=== PATIENT | male | born 1960 | race Caucasian/White ===

== ENCOUNTER 2018-10-08 12:42 | Emergency (ER) | payer SELFPAY ==
[~2018-10-08] VITALS: Ht 177.8 cm; Wt 95.0 kg
[2018-10-08] MEDS ORDERED: LEVO125T8 PO (12:56)
[2018-10-08] MEDS ORDERED: CITA20TA28 PO (12:56)
--- NOTE | 2018-10-08 13:37 | NUR ---
spouse at bedside,awaiting for patient to be seen by ED doc.
[2018-10-08 13:45] LABS: BASOPHILS % (AUTO) 0.5 % (0-1); EOSINOPHILS # (AUTO) 0.2 X10'3 (0-0.9); EOSINOPHILS % (AUTO) 2.1 % (0-6); HEMATOCRIT 45.3 % (42.0-52.0); HEMOGLOBIN 15.8 g/dl (14.0-17.9); LYMPHOCYTES # (AUTO) 1.5 X10'3 (1.1-4.8); LYMPHOCYTES % (AUTO) 18.2 % (21-51); MEAN CORPUSCULAR HEMOGLOBIN 30.2 PG (27.0-31.0); MEAN CORPUSCULAR HGB CONC 34.8 g/dL (33.0-36.5); MEAN CORPUSCULAR VOLUME 86.7 FL (78-98); MEAN PLATELET VOLUME 7.9 FL (7.4-10.4); MONOCYTES # (AUTO) 0.7 X10'3 (0-0.9); MONOCYTES % (AUTO) 9.2 % (2-12); NEUTROPHILS # (AUTO) 5.7 X10'3 (1.8-7.7); PLATELET COUNT 203 X10'3 (140-440); RED BLOOD COUNT 5.22 X10'6 (4.70-6.10); RED CELL DISTRIBUTION WIDTH 13.6 % (11.5-14.5); WHITE BLOOD COUNT 8.2 X10'3 (4.5-11.0)
--- NOTE | 2018-10-08 13:48 | NUR ---
dr. crocker at bedside.
[2018-10-08 13:52] LABS: PARTIAL THROMBOPLASTIN TIME 31 SECONDS (22-32)
[2018-10-08 13:56] LABS: ALANINE AMINOTRANSFERASE 33 U/L (12-78); ALBUMIN 3.7 G/DL (3.4-5.0); ALBUMIN/GLOBULIN RATIO 0.9 (1.1-1.5); ALKALINE PHOSPHATASE 59 IU/L (46-116); ANION GAP 8 (8-16); ASPARTATE AMINO TRANSFERASE 21 U/L (10-37); BILIRUBIN,TOTAL 1.3 MG/DL (0.1-1.0); BLOOD UREA NITROGEN 14 MG/DL (7-18); BUN/CREATININE RATIO 10.6 (5.4-32.0); CALCIUM 8.9 MG/DL (8.5-10.1); CHLORIDE 104 MMOL/L (99-107); CREATININE 1.32 MG/DL (0.60-1.10); GLUCOSE 106 MG/DL (70-104); POTASSIUM 3.7 MMOL/L (3.5-5.1); SODIUM 139 MMOL/L (135-145); TOTAL CARBON DIOXIDE 27.1 MMOL/L (24-32); TOTAL PROTEIN 7.8 G/DL (6.4-8.2); eGFR 56 ML/MIN
[2018-10-08] MEDS ORDERED: ketorolac trometh. 30mg/ml inj. IV ONE (14:05)
[2018-10-08 14:12] LABS: D-DIMER 0.57 MG/L FEU (0-0.50)
--- NOTE | 2018-10-08 14:14 | NUR ---
d dimer and pro bnp result still pending.
--- NOTE | 2018-10-08 15:16 | NUR ---
patient up to the bathroom.
[2018-10-08 16:51] VITALS: BP 99/83
== END 2018-10-08 16:52 | disposition home or self-care (01) ==
LOC: ER 12:43
DX: R07.89 Other chest pain (principal); F32.9 Major depressive disorder, single episode, unspecified; F10.99 Alcohol use, unspecified with unspecified alcohol-induced disorder; Z98.890 Other specified postprocedural states; Z79.899 Other long term (current) drug therapy; Y90.9 Presence of alcohol in blood, level not specified
CPT/HCPCS: 36415; 71045; 80053; 83880; 84484; 85025; 85379; 85610; 85730; 93005; 96374; 99284; J1885

== ENCOUNTER 2020-03-12 12:25 | Day surgery (SDC) | payer BC ==
[~2020-03-12] VITALS: Ht 177.8 cm; Wt 102.1 kg
[2020-03-12] VITALS (7 sets, daily range): BP systolic 99–120; BP diastolic 61–73
[~2020-03-12 12:25] MED LIST: CITA20TA28 PO; LEVO125T8 PO
[2020-03-12] MEDS ORDERED: LIDOcaine/PRILOcaine 5gm cream TP ONE (13:00)
[2020-03-12] MEDS ORDERED: normal saline 1,000 ML IV SCH (13:00)
[2020-03-12] MEDS ORDERED: diphenhydrAMINE 25mg capsule PO PRN (13:00)
[2020-03-12] MEDS ORDERED: LORazepam 0.5 MG tablet PO PRN (13:00)
[2020-03-12] MEDS ORDERED: BISA-78 PO (13:09)
[2020-03-12] MEDS ORDERED: ACET-3414 PO (13:09)
[2020-03-12] MEDS ORDERED: GLUC-99 PO (13:09)
[2020-03-12] MEDS ORDERED: LANS15CA18 PO (13:09)
[2020-03-12] MEDS ORDERED: LIDOcaine 1% (10mg/ml)w/preservative injection 20ml MDV ONE (15:36)
[2020-03-12] MEDS ORDERED: midazolam 2 mg/2 ml injection ONE (15:36)
[2020-03-12] MEDS ORDERED: fentaNYL/PF 50MCG/1 ML 2ML syringe ONE (15:36)
[2020-03-12] MEDS ORDERED: iohexol 350MG/ML 100ml bottle IV ONE (15:36)
[2020-03-12] MEDS ORDERED: nitroGLYCERIN-Tridil 50MG/D5W 250 ML IV ONE (15:40)
[2020-03-12] MEDS ORDERED: heparin 1,000unit/ml 10ml vial 10 ML ONE (15:40)
[2020-03-12] MEDS ORDERED: verapamil 2.5 mg/ml inj IV ONE (15:40)
== END 2020-03-12 19:10 | disposition home or self-care (01) ==
LOC: SSTAY O 12:25
PROVIDERS: ATTEND Internal Medicine Interventional Cardiology
DX: R06.02 Shortness of breath (principal); I27.20 Pulmonary hypertension, unspecified; I25.10 Atherosclerotic heart disease of native coronary artery without angina pectoris; E03.9 Hypothyroidism, unspecified; F41.9 Anxiety disorder, unspecified; E05.00 Thyrotoxicosis with diffuse goiter without thyrotoxic crisis or storm; Z79.899 Other long term (current) drug therapy
CPT/HCPCS: 93005; 93460; 99152; 99153; C1769; C1894; J1644; J2001; J2250; J3010; J7030; Q0163; Q9967; A4620; A5120; A6258; C1751; J3490

== ENCOUNTER 2020-05-11 00:16 | Emergency (ER) | payer BC ==
[~2020-05-11] VITALS: Ht 177.8 cm; Wt 102.3 kg
[~2020-05-11 00:16] MED LIST changes: +ACET-3414 PO; +BISA-78 PO; +GLUC-99 PO; +LANS15CA18 PO
[2020-05-11 02:41] LABS: BASOPHILS # (AUTO) 0.1 X10'3 (0-0.2); BASOPHILS % (AUTO) 0.9 % (0-1); EOSINOPHILS # (AUTO) 0.2 X10'3 (0-0.9); EOSINOPHILS % (AUTO) 2.8 % (0-6); HEMATOCRIT 45.8 % (42.0-52.0); HEMOGLOBIN 15.5 g/dl (14.0-17.9); LYMPHOCYTES # (AUTO) 1.5 X10'3 (1.1-4.8); MEAN CORPUSCULAR HEMOGLOBIN 29.6 PG (27.0-31.0); MEAN CORPUSCULAR HGB CONC 33.7 g/dL (33.0-36.5); MEAN CORPUSCULAR VOLUME 87.9 FL (78-98); MONOCYTES # (AUTO) 0.9 X10'3 (0-0.9); MONOCYTES % (AUTO) 10.7 % (2-12); NEUTROPHILS # (AUTO) 5.3 X10'3 (1.8-7.7); NEUTROPHILS % (AUTO) 66.6 % (42-75); PLATELET COUNT 223 X10'3 (140-440); RED BLOOD COUNT 5.21 X10'6 (4.70-6.10); RED CELL DISTRIBUTION WIDTH 15.3 % (11.5-14.5); WHITE BLOOD COUNT 7.9 X10'3 (4.5-11.0)
[2020-05-11 02:43] LABS: ALANINE AMINOTRANSFERASE 268 U/L (12-78); ALKALINE PHOSPHATASE 68 IU/L (46-116); ANION GAP 7 (8-16); ASPARTATE AMINO TRANSFERASE 38 U/L (10-37); BILIRUBIN,TOTAL 0.9 MG/DL (0.1-1.0); BLOOD UREA NITROGEN 19 MG/DL (7-18); BUN/CREATININE RATIO 14.3 (5.4-32.0); CALCIUM 8.6 MG/DL (8.5-10.1); CHLORIDE 108 MMOL/L (99-107); CREATININE 1.33 MG/DL (0.60-1.10); GLUCOSE 91 MG/DL (70-104); POTASSIUM 3.9 MMOL/L (3.5-5.1); SODIUM 143 MMOL/L (135-145); TOTAL CARBON DIOXIDE 27.8 MMOL/L (24-32); TOTAL PROTEIN 6.1 G/DL (6.4-8.2); eGFR 55 ML/MIN
[2020-05-11 03:15] VITALS: BP 116/81
--- NOTE | 2020-05-11 04:21 | NUR ---
Patient declined repeat VS on discharge: "I'm fine". Patient left accompanied by his with his home 02.
== END 2020-05-11 04:23 | disposition home or self-care (01) ==
LOC: ER 00:17
DX: R60.0 Localized edema (principal); R21 Rash and other nonspecific skin eruption; R74.01 Elevation of levels of liver transaminase levels; F32.9 Major depressive disorder, single episode, unspecified; Z98.890 Other specified postprocedural states; Z72.89 Other problems related to lifestyle; Z79.899 Other long term (current) drug therapy
CPT/HCPCS: 36415; 80053; 85025; 93005; 93970; 99285

== ENCOUNTER 2021-11-06 13:47 | Emergency (ER) | payer BC ==
[~2021-11-06] VITALS: Ht 177.8 cm; Wt 93.2 kg
[2021-11-06 14:30] LABS: BASOPHILS % (AUTO) 0.6 % (0-1); EOSINOPHILS % (AUTO) 0.1 % (0-6); HEMATOCRIT 41.4 % (42.0-52.0); HEMOGLOBIN 13.8 g/dl (14.0-17.9); LYMPHOCYTES # (AUTO) 0.2 X10'3 (1.1-4.8); LYMPHOCYTES % (AUTO) 3.7 % (21-51); MEAN CORPUSCULAR HEMOGLOBIN 28.1 PG (27.0-31.0); MEAN CORPUSCULAR HGB CONC 33.2 g/dL (33.0-36.5); MEAN CORPUSCULAR VOLUME 84.7 FL (78-98); MONOCYTES # (AUTO) 0.3 X10'3 (0-0.9); NEUTROPHILS % (AUTO) 90.6 % (42-75); PLATELET COUNT 154 X10'3 (140-440); RED BLOOD COUNT 4.89 X10'6 (4.70-6.10); RED CELL DISTRIBUTION WIDTH 18.2 % (11.5-14.5); WHITE BLOOD COUNT 6.6 X10'3 (4.5-11.0)
[2021-11-06 14:46] LABS: ALANINE AMINOTRANSFERASE 13 U/L (12-78); ALBUMIN 3.8 G/DL (3.4-5.0); ALBUMIN/GLOBULIN RATIO 1.4 (1.1-1.5); ALKALINE PHOSPHATASE 61 IU/L (46-116); ANION GAP 10 (8-16); ASPARTATE AMINO TRANSFERASE 8 U/L (10-37); BILIRUBIN,TOTAL 1.6 MG/DL (0.1-1.0); BLOOD UREA NITROGEN 12 MG/DL (7-18); BUN/CREATININE RATIO 7.7 (5.4-32.0); CALCIUM 8.3 MG/DL (8.5-10.1); CHLORIDE 104 MMOL/L (99-107); CREATININE 1.55 MG/DL (0.60-1.10); GLUCOSE 92 MG/DL (70-104); LIPASE 63 U/L (73-393); POTASSIUM 3.7 MMOL/L (3.5-5.1); SODIUM 138 MMOL/L (135-145); TOTAL PROTEIN 6.6 G/DL (6.4-8.2); eGFR 46 ML/MIN
[2021-11-06] MEDS ORDERED: normal saline 1000ML IV soln IVB ONE (16:35)
[2021-11-06] MEDS ORDERED: magnesium hydroxide 30ml (MOM) UD suspension PO ONE (17:00)
[2021-11-06] MEDS ORDERED: lactulose 20gm/30ml cup PO ONE (17:00)
[2021-11-06 17:03] LABS: CLARITY,URINE CLEAR (Clear); COLOR,URINE YELLOW (Yellow); GLUCOSE, URINE NEGATIVE (Neg); KETONES,URINE NEGATIVE (Neg); LEUKOCYTE ESTERASE ,URINE NEGATIVE (Neg); NITRITES, URINE NEGATIVE (Neg); OCCULT BLOOD,URINE TRACE-INTACT (Neg); PH,URINE 5.5 (4.8-8.0); PROTEIN,URINE NEGATIVE (Neg); UROBILINOGEN,URINE 0.2 E.U/dL (0.2-1.0)
[2021-11-06 17:15] LABS: UA COLLECTION TYPE URINAL
[2021-11-06 17:17] LABS: BACTERIA,URINE NONE SEEN /HPF (Neg); RBC,URINE 0-2 /HPF (0-2); SQUAMOUS EPITHELIAL CELL,UR NONE SEEN /LPF (FEW); WBC,URINE NONE SEEN /HPF (0-4)
[2021-11-06] MEDS ORDERED: HYDR25SU48 RC (17:53)
[2021-11-06 17:54] VITALS: BP 113/66
== END 2021-11-06 18:34 | disposition home or self-care (01) ==
LOC: ER 13:48
DX: K59.00 Constipation, unspecified (principal); K64.4 Residual hemorrhoidal skin tags; R18.8 Other ascites; F32.A Depression, unspecified; E03.9 Hypothyroidism, unspecified; I27.20 Pulmonary hypertension, unspecified; Z79.1 Long term (current) use of non-steroidal anti-inflammatories (NSAID); Z79.2 Long term (current) use of antibiotics
CPT/HCPCS: 36415; 74176; 80053; 81001; 83690; 84145; 85025; 96360; 99284; J7030; A4615

== ENCOUNTER 2021-11-18 07:17 | Outpatient (CLI) | payer BC ==
[~2021-11-18 07:17] MED LIST changes: +HYDR25SU48 RC
[2021-11-19] MEDS ORDERED: APIX5TAB3 PO (09:14)
[2021-11-19] MEDS ORDERED: RIOC2.5T PO (09:14)
[2021-11-19] MEDS ORDERED: FLUT16SP26 (09:21)
[2021-11-19] MEDS ORDERED: FOLI1TAB27 PO (09:21)
[2021-11-19] MEDS ORDERED: TORS40TA PO (09:21)
[2021-11-19] MEDS ORDERED: PRED10TA PO (09:21)
[2021-11-19] MEDS ORDERED: POTA-192 PO (09:21)
[2021-11-19] MEDS ORDERED: MACI10TA2 PO (09:21)
== END 2021-11-18 23:59 | disposition home or self-care (01) ==
LOC: RT 07:17
PROVIDERS: ATTEND Internal Medicine Pulmonary Disease
DX: I27.20 Pulmonary hypertension, unspecified (principal); R06.02 Shortness of breath
CPT/HCPCS: 94618

== ENCOUNTER 2021-11-18 11:01 | Emergency (ER) | payer BC ==
[~2021-11-18] VITALS: Ht 177.8 cm; Wt 89.1 kg
[2021-11-18 11:38] LABS: BASOPHILS % (AUTO) 0.6 % (0-1); EOSINOPHILS % (AUTO) 0.5 % (0-6); HEMATOCRIT 46.1 % (42.0-52.0); HEMOGLOBIN 15.4 g/dl (14.0-17.9); LYMPHOCYTES # (AUTO) 0.3 X10'3 (1.1-4.8); LYMPHOCYTES % (AUTO) 4.5 % (21-51); MEAN CORPUSCULAR HEMOGLOBIN 28.2 PG (27.0-31.0); MEAN CORPUSCULAR HGB CONC 33.5 g/dL (33.0-36.5); MEAN CORPUSCULAR VOLUME 84.2 FL (78-98); MONOCYTES # (AUTO) 0.5 X10'3 (0-0.9); MONOCYTES % (AUTO) 8.2 % (2-12); NEUTROPHILS # (AUTO) 5.6 X10'3 (1.8-7.7); NEUTROPHILS % (AUTO) 86.2 % (42-75); PLATELET COUNT 161 X10'3 (140-440); RED BLOOD COUNT 5.47 X10'6 (4.70-6.10); WHITE BLOOD COUNT 6.5 X10'3 (4.5-11.0)
[2021-11-18 11:47] LABS: ALANINE AMINOTRANSFERASE 15 U/L (12-78); ALBUMIN/GLOBULIN RATIO 1.2 (1.1-1.5); ALKALINE PHOSPHATASE 70 IU/L (46-116); ANION GAP 13 (8-16); ASPARTATE AMINO TRANSFERASE 13 U/L (10-37); BILIRUBIN,TOTAL 1.5 MG/DL (0.1-1.0); BLOOD UREA NITROGEN 11 MG/DL (7-18); BUN/CREATININE RATIO 6.5 (5.4-32.0); CALCIUM 9.4 MG/DL (8.5-10.1); CHLORIDE 101 MMOL/L (99-107); GLUCOSE 100 MG/DL (70-104); LIPASE 74 U/L (73-393); POTASSIUM 3.9 MMOL/L (3.5-5.1); SODIUM 139 MMOL/L (135-145); TOTAL CARBON DIOXIDE 24.6 MMOL/L (24-32); TOTAL PROTEIN 7.3 G/DL (6.4-8.2); eGFR 41 ML/MIN
[2021-11-18] MEDS ORDERED: iohexol 300mg/ml 100ml inj. ONE (13:09)
--- NOTE | 2021-11-18 14:15 | NUR ---
pt ambulated with steady gait to/from restroom. to escort.
[2021-11-18 14:24] LABS: CLARITY,URINE CLEAR (Clear); COLOR,URINE YELLOW (Yellow); GLUCOSE, URINE NEGATIVE (Neg); KETONES,URINE NEGATIVE (Neg); LEUKOCYTE ESTERASE ,URINE NEGATIVE (Neg); NITRITES, URINE NEGATIVE (Neg); OCCULT BLOOD,URINE NEGATIVE (Neg); PH,URINE 5.5 (4.8-8.0); PROTEIN,URINE NEGATIVE (Neg); UROBILINOGEN,URINE 0.2 E.U/dL (0.2-1.0)
[2021-11-18 14:46] LABS: UA COLLECTION TYPE URINAL
[2021-11-18 16:00] VITALS: BP 112/59
[2021-11-19] MEDS ORDERED: RIOC2.5T PO (09:14)
[2021-11-19] MEDS ORDERED: APIX5TAB3 PO (09:14)
[2021-11-19] MEDS ORDERED: FOLI1TAB27 PO (09:21)
[2021-11-19] MEDS ORDERED: PRED10TA PO (09:21)
[2021-11-19] MEDS ORDERED: FLUT16SP26 (09:21)
[2021-11-19] MEDS ORDERED: TORS40TA PO (09:21)
[2021-11-19] MEDS ORDERED: MACI10TA2 PO (09:21)
[2021-11-19] MEDS ORDERED: POTA-192 PO (09:21)
== END 2021-11-18 16:42 | disposition home or self-care (01) ==
LOC: ER 11:01
DX: R18.8 Other ascites (principal); F45.8 Other somatoform disorders; E03.9 Hypothyroidism, unspecified; F32.A Depression, unspecified; Z79.899 Other long term (current) drug therapy
CPT/HCPCS: 74177; 80053; 81003; 83690; 85025; 99285; J3490; Q9967; A4615

== ENCOUNTER 2021-11-19 08:40 | Day surgery (SDC) | payer BC ==
[2021-11-19] VITALS (7 sets, daily range): BP systolic 94–110; BP diastolic 56–64
[~2021-11-19] VITALS: Ht 177.8 cm; Wt 90.4 kg
[2021-11-19] MEDS ORDERED: LIDOcaine 1% 30ml preserv. free vial SQ STA (08:47)
[2021-11-19] MEDS ORDERED: albumin 25% 100mL bottle x 1 IV PRN (09:10)
[2021-11-19] MEDS ORDERED: APIX5TAB3 PO (09:14)
[2021-11-19] MEDS ORDERED: RIOC2.5T PO (09:14)
[2021-11-19] MEDS ORDERED: FOLI1TAB27 PO (09:21)
[2021-11-19] MEDS ORDERED: PRED10TA PO (09:21)
[2021-11-19] MEDS ORDERED: FLUT16SP26 (09:21)
[2021-11-19] MEDS ORDERED: POTA-192 PO (09:21)
[2021-11-19] MEDS ORDERED: MACI10TA2 PO (09:21)
[2021-11-19] MEDS ORDERED: TORS40TA PO (09:21)
[2021-11-19 11:53] LABS: ALBUMIN,BODY FLUID 2.3 G/DL; GLUCOSE,BODY FLUID 88 MG/DL; TOTAL PROTEIN,BODY FLUID 3.7 G/DL
[2021-11-19 12:01] LABS: BF MESOTHELIAL CELLS MODERATE; BF RBC COUNT 1925 /CU MM; BF WBC COUNT 205 /CU MM (0-1000); BFAPPEAR HAZY; BFCOLOR YELLOW; BFVOLUME 60 ML; EOSINOPHILS,BODY FLUID 1 %; LYMPHOCYTES,BODY FLUID 71 %; MONOCYTES,BODY FLUID 17 %; NEUTROPHILS,BODY FLUID 11 %
== END 2021-11-19 12:20 | disposition home or self-care (01) ==
LOC: SSTAY O 08:40
PROVIDERS: ATTEND Radiology Diagnostic Radiology
DX: R18.8 Other ascites (principal); I50.810 Right heart failure, unspecified; Z79.899 Other long term (current) drug therapy; Z98.890 Other specified postprocedural states; E03.9 Hypothyroidism, unspecified; I27.20 Pulmonary hypertension, unspecified
CPT/HCPCS: 49083; 82042; 82945; 84157; 87070; 89051; J3490; A4615; A6258

== ENCOUNTER 2022-02-24 06:32 | Day surgery (SDC) | payer BC ==
[2022-02-24] VITALS (7 sets, daily range): BP systolic 90–108; BP diastolic 49–73
[~2022-02-24] VITALS: Ht 177.8 cm; Wt 88.1 kg
[~2022-02-24 06:32] MED LIST changes: +APIX5TAB3 PO; -BISA-78 PO; +FLUT16SP26; +FOLI1TAB27 PO; -GLUC-99 PO; -HYDR25SU48 RC; +MACI10TA2 PO; +POTA-192 PO; +PRED10TA PO; +RIOC2.5T PO; +TORS40TA PO
[2022-02-24] MEDS ORDERED: LIDOcaine 1% 30ml preserv. free vial SQ STA (06:47)
[2022-02-24] MEDS ORDERED: LEVO150T8 PO (07:06)
[2022-02-24] MEDS ORDERED: TORS100T15 PO (07:08)
[2022-02-24] MEDS ORDERED: EPOPROSTENOL (07:09)
[2022-02-24] MEDS ORDERED: albumin 25% 100mL bottle x 1 IV PRN (07:10)
[2022-02-24] MEDS ORDERED: TRAM50TA2 PO (07:14)
[2022-02-24] MEDS ORDERED: methotrexate PO (07:14)
[2022-02-24] MEDS ORDERED: SUCR1TAB PO (07:15)
[2022-02-24] MEDS ORDERED: CITA40TA17 PO (07:15)
[2022-02-24] MEDS ORDERED: EPLE50TA3 PO (07:15)
== END 2022-02-24 10:05 | disposition home or self-care (01) ==
LOC: SSTAY O 06:32
PROVIDERS: ATTEND Radiology Vascular & Interventional Radiology
DX: R18.8 Other ascites (principal); R14.0 Abdominal distension (gaseous); E03.9 Hypothyroidism, unspecified; I50.9 Heart failure, unspecified; D86.9 Sarcoidosis, unspecified; I27.20 Pulmonary hypertension, unspecified; Z86.711 Personal history of pulmonary embolism; Z79.01 Long term (current) use of anticoagulants; Z98.890 Other specified postprocedural states; Z79.899 Other long term (current) drug therapy
CPT/HCPCS: 49083; J3490; P9047; A4615; A6258

== ENCOUNTER 2022-03-10 08:11 | Day surgery (SDC) | payer BC ==
[~2022-03-10] VITALS: Ht 177.8 cm; Wt 84.9 kg
[2022-03-10] VITALS (7 sets, daily range): BP systolic 88–111; BP diastolic 54–63
[~2022-03-10 08:11] MED LIST changes: -ACET-3414 PO; +CITA40TA17 PO; +EPLE50TA3 PO; +EPOPROSTENOL; -FOLI1TAB27 PO; -LEVO125T8 PO; +LEVO150T8 PO; -MACI10TA2 PO; +SUCR1TAB PO; +TORS100T15 PO; -TORS40TA PO; +TRAM50TA2 PO; +methotrexate PO
[2022-03-10] MEDS ORDERED: albumin 25% 100mL bottle x 1 IV PRN (08:25)
[2022-03-10] MEDS ORDERED: LIDOcaine 1% 30ml preserv. free vial SQ STA (08:25)
== END 2022-03-10 10:20 | disposition home or self-care (01) ==
LOC: SSTAY O 08:11
PROVIDERS: ATTEND Radiology Vascular & Interventional Radiology
DX: R18.8 Other ascites (principal); R14.0 Abdominal distension (gaseous); E03.9 Hypothyroidism, unspecified; I27.20 Pulmonary hypertension, unspecified; I50.9 Heart failure, unspecified; Z87.01 Personal history of pneumonia (recurrent); Z79.01 Long term (current) use of anticoagulants; Z98.890 Other specified postprocedural states; Z79.899 Other long term (current) drug therapy
CPT/HCPCS: 49083; P9047; A4615; A6258

== ENCOUNTER 2022-03-15 15:03 | Emergency (ER) | payer BC ==
[~2022-03-15] VITALS: Ht 177.8 cm; Wt 80.0 kg
[~2022-03-15 15:03] MED LIST changes: -CITA20TA28 PO
--- NOTE | 2022-03-15 15:40 | NUR ---
pt has pump attached to his central line for BP meds Veletri
[2022-03-15] MEDS ORDERED: LIDOcaine 1% W/epiNEPHrine 1:200,000 10ml vial IJ ONE (16:25)
[2022-03-15] MEDS ORDERED: LIDOCAINE 2%/EPI 1:100,000 inj. Multi-dose 20 ML VIAL IJ ONE (16:29)
[2022-03-15 17:42] VITALS: BP 95/62
[2022-03-15] MEDS ORDERED: albumin (human) 25% 100 ML IV solution IV ONE (18:40)
== END 2022-03-15 20:30 | disposition home or self-care (01) ==
LOC: ER 15:03
DX: R18.8 Other ascites (principal); I50.9 Heart failure, unspecified; E03.9 Hypothyroidism, unspecified; F32.9 Major depressive disorder, single episode, unspecified; Z72.89 Other problems related to lifestyle; Z79.899 Other long term (current) drug therapy; Z79.01 Long term (current) use of anticoagulants
CPT/HCPCS: 49083; 96365; 99285; P9047

== ENCOUNTER 2022-03-20 07:02 | Day surgery (SDC) | payer BC ==
[~2022-03-20] VITALS: Ht 177.8 cm; Wt 79.0 kg
[2022-03-20] MEDS ORDERED: albumin 25% 100mL bottle x 1 IV PRN (07:25)
[2022-03-20] MEDS ORDERED: LIDOcaine 1% 30ml preserv. free vial SQ STA ×2 (07:40→07:55)
[2022-03-20 08:18] VITALS: BP 100/54
[2022-03-20 08:33] VITALS: BP 88/59
[2022-03-20 08:48] VITALS: BP 96/59
[2022-03-20 09:03] VITALS: BP 95/54
== END 2022-03-20 09:15 | disposition home or self-care (01) ==
LOC: SSTAY O 07:02
PROVIDERS: ATTEND Radiology Vascular & Interventional Radiology
DX: R18.8 Other ascites (principal); R14.0 Abdominal distension (gaseous); E03.9 Hypothyroidism, unspecified; I27.20 Pulmonary hypertension, unspecified; I50.9 Heart failure, unspecified; E05.00 Thyrotoxicosis with diffuse goiter without thyrotoxic crisis or storm; Z79.01 Long term (current) use of anticoagulants; Z86.711 Personal history of pulmonary embolism; Z98.890 Other specified postprocedural states
CPT/HCPCS: 49083; A4615; A6258; A6449

== ENCOUNTER 2022-03-23 02:03 | Outpatient (CLI) | payer BC ==
[~2022-03-23 02:03] MED LIST changes: -FLUT16SP26; -TRAM50TA2 PO
== END 2022-03-23 23:59 | disposition home or self-care (01) ==
LOC: RT 02:03
PROVIDERS: ATTEND Internal Medicine Pulmonary Disease
DX: I27.20 Pulmonary hypertension, unspecified (principal); R06.02 Shortness of breath
CPT/HCPCS: 94618

== ENCOUNTER 2022-03-27 07:33 | Day surgery (SDC) | payer BC ==
[2022-03-27] VITALS (8 sets, daily range): BP systolic 88–109; BP diastolic 51–91
[~2022-03-27] VITALS: Ht 177.8 cm; Wt 83.1 kg
[2022-03-27] MEDS ORDERED: LIDOcaine 1% 30ml preserv. free vial SQ STA (07:53)
[2022-03-27] MEDS ORDERED: normal saline 1000ml 1,000 ML IV PRN (07:55)
[2022-03-27] MEDS ORDERED: albumin 25% 100mL bottle x 1 IV PRN (07:55)
== END 2022-03-27 10:35 | disposition home or self-care (01) ==
LOC: SSTAY O 07:33
PROVIDERS: ATTEND Radiology Diagnostic Radiology
DX: R18.8 Other ascites (principal); R14.0 Abdominal distension (gaseous); E03.9 Hypothyroidism, unspecified; D86.9 Sarcoidosis, unspecified; I27.20 Pulmonary hypertension, unspecified; E05.00 Thyrotoxicosis with diffuse goiter without thyrotoxic crisis or storm; I50.9 Heart failure, unspecified; J44.9 Chronic obstructive pulmonary disease, unspecified; Z86.711 Personal history of pulmonary embolism; Z79.01 Long term (current) use of anticoagulants; Z98.890 Other specified postprocedural states; Z79.899 Other long term (current) drug therapy
CPT/HCPCS: 49083; J3490; P9047; A6258; A6449

== ENCOUNTER 2022-04-03 08:16 | Day surgery (SDC) | payer BC ==
[~2022-04-03] VITALS: Ht 177.8 cm; Wt 80.7 kg
[2022-04-03] VITALS (8 sets, daily range): BP systolic 85–102; BP diastolic 50–64
[2022-04-03] MEDS ORDERED: LIDOcaine 1% 30ml preserv. free vial SQ STA (08:34)
[2022-04-03] MEDS ORDERED: albumin 25% 100mL bottle x 1 IV PRN (08:40)
== END 2022-04-03 11:15 | disposition home or self-care (01) ==
LOC: SSTAY O 08:16
PROVIDERS: ATTEND Radiology Diagnostic Radiology
DX: R18.8 Other ascites (principal); E03.9 Hypothyroidism, unspecified; I27.20 Pulmonary hypertension, unspecified; J44.9 Chronic obstructive pulmonary disease, unspecified; I50.9 Heart failure, unspecified; D86.9 Sarcoidosis, unspecified; Z98.52 Vasectomy status; Z80.3 Family history of malignant neoplasm of breast; Z80.8 Family history of malignant neoplasm of other organs or systems; Z96.60 Presence of unspecified orthopedic joint implant; Z98.890 Other specified postprocedural states; Z79.01 Long term (current) use of anticoagulants; Z79.890 Hormone replacement therapy; Z79.899 Other long term (current) drug therapy
CPT/HCPCS: 49083; J3490; P9047; 94625; A6258; A6449

== ENCOUNTER 2022-04-10 07:33 | Day surgery (SDC) | payer BC ==
[2022-04-10] VITALS (7 sets, daily range): BP systolic 88–112; BP diastolic 39–62
[~2022-04-10] VITALS: Ht 177.8 cm; Wt 82.1 kg
[2022-04-10] MEDS ORDERED: LIDOcaine 1% 30ml preserv. free vial SQ STA (07:48)
[2022-04-10] MEDS ORDERED: albumin 25% 100mL bottle x 1 IV PRN (07:55)
[2022-04-10] MEDS ORDERED: ketorolac trometh. 30mg/ml inj. IV ONE (09:15)
== END 2022-04-10 10:30 | disposition home or self-care (01) ==
LOC: SSTAY O 07:33
PROVIDERS: ATTEND Radiology Vascular & Interventional Radiology
DX: R18.8 Other ascites (principal); E03.9 Hypothyroidism, unspecified; I27.20 Pulmonary hypertension, unspecified; J44.9 Chronic obstructive pulmonary disease, unspecified; I50.9 Heart failure, unspecified; E05.00 Thyrotoxicosis with diffuse goiter without thyrotoxic crisis or storm; D86.9 Sarcoidosis, unspecified; Z86.711 Personal history of pulmonary embolism; Z79.01 Long term (current) use of anticoagulants; Z98.890 Other specified postprocedural states; Z79.899 Other long term (current) drug therapy; Z91.041 Radiographic dye allergy status
CPT/HCPCS: 49083; J1885; J3490; P9047; A6258

== ENCOUNTER 2022-04-17 07:53 | Day surgery (SDC) | payer BC ==
[~2022-04-17] VITALS: Ht 177.8 cm; Wt 80.6 kg
[2022-04-17] VITALS (7 sets, daily range): BP systolic 89–100; BP diastolic 51–61
[~2022-04-17 07:53] MED LIST changes: -LANS15CA18 PO
[2022-04-17] MEDS ORDERED: LIDOcaine 1% 30ml preserv. free vial SQ STA (08:08)
[2022-04-17] MEDS ORDERED: ondansetron/PF 4mg/2ml inj IV ONE (08:30)
[2022-04-17] MEDS ORDERED: ketorolac tromethamine 15mg/ml inj. IV ONE (08:30)
[2022-04-17] MEDS: albumin 25% 100mL bottle x 1 IV PRN ×2 (09:07→10:00)
== END 2022-04-17 10:30 | disposition home or self-care (01) ==
LOC: SSTAY O 07:53
PROVIDERS: ATTEND Radiology Vascular & Interventional Radiology
DX: R18.8 Other ascites (principal); R14.0 Abdominal distension (gaseous); E03.9 Hypothyroidism, unspecified; I27.20 Pulmonary hypertension, unspecified; J44.9 Chronic obstructive pulmonary disease, unspecified; I50.9 Heart failure, unspecified; E05.00 Thyrotoxicosis with diffuse goiter without thyrotoxic crisis or storm; D86.9 Sarcoidosis, unspecified; Z98.890 Other specified postprocedural states; Z86.711 Personal history of pulmonary embolism; Z79.01 Long term (current) use of anticoagulants; Z79.899 Other long term (current) drug therapy
CPT/HCPCS: 49083; J1885; J2405; J3490; P9047; A4615; A6258

== ENCOUNTER 2022-05-05 06:34 | Day surgery (SDC) | payer BC ==
[~2022-05-05] VITALS: Ht 177.8 cm; Wt 76.2 kg
[~2022-05-05 06:34] MED LIST changes: -EPOPROSTENOL; +EPOPROSTENOL IV
[2022-05-05] MEDS ORDERED: LIDOcaine 1% 30ml preserv. free vial SQ STA (06:39)
[2022-05-05] MEDS ORDERED: SULF1TAB49 PO (07:05)
[2022-05-05] MEDS ORDERED: LEVO200T8 PO (07:05)
[2022-05-05] MEDS ORDERED: PRED20TA PO (07:05)
[2022-05-05] MEDS ORDERED: albumin 25% 100mL bottle x 1 IV PRN (07:05)
[2022-05-05] MEDS ORDERED: EPLE50TA3 PO (07:05)
[2022-05-05] MEDS ORDERED: PANT40TA54 PO (07:07)
[2022-05-05 07:23] VITALS: BP 90/54
[2022-05-05 07:24] VITALS: BP 90/54
[2022-05-05 08:27] VITALS: BP 89/59
== END 2022-05-05 08:45 | disposition home or self-care (01) ==
LOC: SSTAY O 06:34
PROVIDERS: ATTEND Radiology Diagnostic Radiology
DX: R18.8 Other ascites (principal); Z53.8 Procedure and treatment not carried out for other reasons; E03.9 Hypothyroidism, unspecified; I27.20 Pulmonary hypertension, unspecified; J44.9 Chronic obstructive pulmonary disease, unspecified; I50.9 Heart failure, unspecified; E05.00 Thyrotoxicosis with diffuse goiter without thyrotoxic crisis or storm; D86.9 Sarcoidosis, unspecified; Z86.711 Personal history of pulmonary embolism; Z79.01 Long term (current) use of anticoagulants; Z79.899 Other long term (current) drug therapy
CPT/HCPCS: 76705; A6258; A6449

== ENCOUNTER 2022-05-07 14:38 | Inpatient (IN) | payer BC ==
[~2022-05-07] VITALS: Ht 177.8 cm; Wt 70.9 kg
[~2022-05-07 14:38] MED LIST changes: -LEVO150T8 PO; +LEVO200T8 PO; +PANT40TA54 PO; -POTA-192 PO; -PRED10TA PO; +PRED20TA PO; +SULF1TAB49 PO; -TORS100T15 PO
[2022-05-07 16:17] LABS: BASOPHILS % (AUTO) 0.3 % (0-1); EOSINOPHILS % (AUTO) 0 % (0-6); LYMPHOCYTES # (AUTO) 0.1 X10'3 (1.1-4.8); LYMPHOCYTES % (AUTO) 0.8 % (21-51); MEAN CORPUSCULAR HEMOGLOBIN 30.4 PG (27.0-31.0); MEAN CORPUSCULAR HGB CONC 33.2 g/dL (33.0-36.5); MEAN CORPUSCULAR VOLUME 91.6 FL (78-98); MONOCYTES # (AUTO) 0.2 X10'3 (0-0.9); MONOCYTES % (AUTO) 1.8 % (2-12); NEUTROPHILS # (AUTO) 11.6 X10'3 (1.8-7.7); NEUTROPHILS % (AUTO) 97.1 % (42-75); PLATELET COUNT 75 X10'3 (140-440); RED BLOOD COUNT 4.26 X10'6 (4.70-6.10); RED CELL DISTRIBUTION WIDTH 16.5 % (11.5-14.5)
[2022-05-07 16:23] LABS: ALANINE AMINOTRANSFERASE 29 U/L (12-78); ALBUMIN 2.2 G/DL (3.4-5.0); ALBUMIN/GLOBULIN RATIO 0.6 (1.1-1.5); ALKALINE PHOSPHATASE 82 IU/L (46-116); ANION GAP 12 (8-16); ASPARTATE AMINO TRANSFERASE 26 U/L (10-37); BILIRUBIN,TOTAL 1.6 MG/DL (0.1-1.0); BLOOD UREA NITROGEN 104 MG/DL (7-18); BUN/CREATININE RATIO 34.9 (10.0-20.0); CALCIUM 8.2 MG/DL (8.5-10.1); CHLORIDE 88 MMOL/L (99-107); CREATININE 2.98 MG/DL (0.60-1.10); GLUCOSE 102 MG/DL (70-104); SODIUM 121 MMOL/L (135-145); TOTAL CARBON DIOXIDE 21.5 MMOL/L (24-32); TOTAL PROTEIN 5.6 G/DL (6.4-8.2); eGFR 22 ML/MIN
[2022-05-07] MEDS ORDERED: normal saline 1000ML IV soln IVB ONE ×2 (18:20→18:45)
[2022-05-07] MEDS: K and/or MAG REPLACEMENT MC SCH (20:00)
[2022-05-07] MEDS ORDERED: acetaminophen 325mg tablet PO PRN ×2 (20:00)
[2022-05-07] MEDS ORDERED: potassium Cl 40MEQ/1/2NS 520ml 520 ML IV PRN (20:00)
[2022-05-07] MEDS ORDERED: magnesium Cl slow-release 64mg tablet PO PRN (20:00)
[2022-05-07] MEDS ORDERED: ondansetron/PF 4mg/2ml inj IV PRN (20:00)
[2022-05-07] MEDS ORDERED: bisacodyl 10mg suppository rectal RC PRN (20:00)
[2022-05-07] MEDS ORDERED: morphine 2 MG/ML inj. syringe IV PRN (20:00)
[2022-05-07] MEDS ORDERED: potassium Cl 20 mEq SR tablet PO PRN (20:00)
[2022-05-07] MEDS: docusate sod 100mg capsule PO SCH (20:00)
[2022-05-07] MEDS ORDERED: mag hydrox/Alum hydrox/simeth 30ml oral suspension PO PRN (20:00)
[2022-05-07] MEDS ORDERED: ondansetron 4mg rapidly disintigrating tab PO PRN (20:00)
[2022-05-07] MEDS ORDERED: diphenhydrAMINE 50 mg/ml inj IV PRN (20:00)
[2022-05-07] MEDS ORDERED: acetaminophen 650mg rectal suppository RC PRN (20:00)
[2022-05-07] MEDS ORDERED: magnesium hydroxide 30ml (MOM) UD suspension PO PRN (20:00)
[2022-05-07] MEDS ORDERED: magnesium 4gm in 100ml NS 100 ML IV PRN (20:00)
[2022-05-07] MEDS ORDERED: diphenhydrAMINE 25mg capsule PO PRN (20:00)
[2022-05-07] MEDS: albumin (Human) 5% 250ml 250 ML IV SCH ×2 (20:35→21:03)
[2022-05-07] MEDS: normal saline 1000ml 1,000 ML IV SCH (20:44)
[2022-05-07 20:59] LABS: HEMOGLOBIN A1C 5.5 % (4.5-6.2)
[2022-05-07] MEDS ORDERED: temazepam 15mg capsule PO PRN (21:00)
[2022-05-07] MEDS: CefTRIAXone/D5W-Rocephin 1gm 50 ML IV SCH (21:05)
[2022-05-07 21:06] LABS: APTT 40 SECONDS (22-32)
[2022-05-07 21:13] LABS: CREATINE KINASE 54 U/L (39-308); LIPASE 53 U/L (73-393); PHOSPHORUS 5.3 MG/DL (2.3-4.5)
[2022-05-07 21:36] LABS: CLARITY,URINE CLEAR (Clear); COLOR,URINE YELLOW (Yellow); GLUCOSE, URINE NEGATIVE (Neg); KETONES,URINE NEGATIVE (Neg); LEUKOCYTE ESTERASE ,URINE NEGATIVE (Neg); NITRITES, URINE NEGATIVE (Neg); OCCULT BLOOD,URINE NEGATIVE (Neg); PROTEIN,URINE NEGATIVE (Neg); UROBILINOGEN,URINE 0.2 E.U/dL (0.2-1.0)
[2022-05-07 21:39] LABS: UA COLLECTION TYPE CLN CATCH MIDSTREAM
--- NOTE | 2022-05-07 21:41 | NUR ---
Patient in room . I have received report from ADELIA Drake and had the opportunity to ask questions and assume patient care.
[2022-05-07 22:07] LABS: URINE AMPHETAMINE SCREEN NEGATIVE (Neg); URINE BARBITUATE SCREEN POSITIVE (Neg); URINE BENZODIAZEPINES SCREEN NEGATIVE (Neg); URINE CANNABINOID SCREEN NEGATIVE (Neg); URINE COCAINE SCREEN NEGATIVE (Neg); URINE METHADONE SCREEN NEGATIVE (Neg); URINE OPIATE SCREEN NEGATIVE (Neg); URINE PHENCYCLIDINE SCREEN NEGATIVE (Neg)
[2022-05-07 23:00] VITALS: BP 104/61
[2022-05-07] MEDS: RIOCIGUAT 2.5 MG PO SCH (23:33)
[2022-05-07] MEDS: HYDROcodone/acetaminophen 5mg/325mg tablet PO PRN (23:36)
[2022-05-08] VITALS (7 sets, daily range): BP systolic 84–98; BP diastolic 46–56
[2022-05-08] MEDS: normal saline 1000ml 1,000 ML IV SCH ×2 (05:33→17:42)
--- NOTE | 2022-05-08 06:34 | NUR ---
Problems reprioritized. Patient report given, questions answered & plan of care reviewed with ADELIA Arce.
--- NOTE | 2022-05-08 06:38 | NUR ---
Patient in room [facility]THO 4023. I have received report from Moon and had the opportunity to ask questions and assume patient care.
[2022-05-08] MEDS: K and/or MAG REPLACEMENT MC SCH ×2 (06:39→21:22)
[2022-05-08] MEDS ORDERED: pantoprazole 40mg Tablet.DR PO SCH (07:30)
[2022-05-08] MEDS: levoTHYROXINE 100mcg tablet PO SCH (07:30)
[2022-05-08 07:40] LABS: BASOPHILS % (AUTO) 0.1 % (0-1); EOSINOPHILS % (AUTO) 0 % (0-6); HEMATOCRIT 32.8 % (42.0-52.0); HEMOGLOBIN 11.2 g/dl (14.0-17.9); LYMPHOCYTES # (AUTO) 0.1 X10'3 (1.1-4.8); LYMPHOCYTES % (AUTO) 1.6 % (21-51); MEAN CORPUSCULAR HEMOGLOBIN 31.3 PG (27.0-31.0); MEAN CORPUSCULAR HGB CONC 34.1 g/dL (33.0-36.5); MEAN PLATELET VOLUME 7.6 FL (7.4-10.4); MONOCYTES # (AUTO) 0.2 X10'3 (0-0.9); MONOCYTES % (AUTO) 2.4 % (2-12); NEUTROPHILS # (AUTO) 8.6 X10'3 (1.8-7.7); NEUTROPHILS % (AUTO) 95.9 % (42-75); RED BLOOD COUNT 3.57 X10'6 (4.70-6.10); RED CELL DISTRIBUTION WIDTH 16.2 % (11.5-14.5)
[2022-05-08] MEDS: sucralfate 1 gm tablet PO SCH ×3 (08:00→21:37)
[2022-05-08] MEDS ORDERED: apixaban 5mg tablet PO SCH (08:00)
[2022-05-08] MEDS: pantoprazole 40mg Tablet.DR PO SCH ×2 (08:00→21:38)
[2022-05-08] MEDS: docusate sod 100mg capsule PO SCH (08:02)
[2022-05-08] MEDS: predniSONE 20 mg tablet PO SCH (08:02)
[2022-05-08] MEDS: citalopram 20mg tablet PO SCH (08:02)
[2022-05-08 08:06] LABS: ALANINE AMINOTRANSFERASE 27 U/L (12-78); ALBUMIN 2.3 G/DL (3.4-5.0); ALBUMIN/GLOBULIN RATIO 0.8 (1.1-1.5); ALKALINE PHOSPHATASE 68 IU/L (46-116); ANION GAP 10 (8-16); ASPARTATE AMINO TRANSFERASE 23 U/L (10-37); BILIRUBIN,TOTAL 1.4 MG/DL (0.1-1.0); BLOOD UREA NITROGEN 93 MG/DL (7-18); BUN/CREATININE RATIO 37.1 (10.0-20.0); CALCIUM 7.8 MG/DL (8.5-10.1); CHLORIDE 93 MMOL/L (99-107); CHOL/HDL RATIO 2.4 (0.00-4.99); CHOLESTEROL 132 MG/DL (0-200); CREATININE 2.51 MG/DL (0.60-1.10); GLUCOSE 89 MG/DL (70-104); HDL CHOLESTEROL 54 MG/DL (35-60); LDL CHOLESTEROL 63 MG/DL (50-100); MAGNESIUM 2.8 MG/DL (1.5-2.4); SODIUM 124 MMOL/L (135-145); TOTAL CARBON DIOXIDE 20.7 MMOL/L (24-32); TOTAL PROTEIN 5.2 G/DL (6.4-8.2); TRIGLYCERIDES 53 MG/DL (20-135); eGFR 26 ML/MIN
[2022-05-08] MEDS: HYDROcodone/acetaminophen 5mg/325mg tablet PO PRN ×3 (08:22→21:37)
[2022-05-08 08:27] LABS: PLATELET COUNT 49 X10'3 (140-440)
--- NOTE | 2022-05-08 08:38 | NUR ---
PAGER ID: [phone] MESSAGE: Nikhil Molina in [id number] - [place] [phone] -Yazmin [phone]
[2022-05-08] MEDS: RIOCIGUAT 2.5 MG PO SCH ×3 (09:01→21:37)
[2022-05-08] MEDS: CefTRIAXone/D5W-Rocephin 1gm 50 ML IV SCH (09:01)
[2022-05-08] MEDS ORDERED: albumin (human) 25% 100 ML IV solution IV ONE (10:25)
[2022-05-08] MEDS ORDERED: [UNRECOGNIZED DRUG - OTHER] IV SCH (15:00)
--- NOTE | 2022-05-08 15:17 | NUR ---
PRESSURE ULCER EDUCATION: DEFINITION: A pressure ulcer is an area of skin that breaks down when you stay in one position too long. The constant pressure against the skin reduces the blood flow to that area and the affected tissue dies. CAUSES: "Being bedridden or in a wheelchair "Fragile skin "Having a chronic condition, such as diabetes or vascular disease "Inability to move certain parts of your body without assistance "Older age "Incontinence of urine or stool SYMPTOMS: "A reddened area that DOES NOT turn white when pressed on - this can be the beginning of a pressure ulcer "A blister, deep sore or a crater - these can be advanced pressure ulcers FIRST AID: "Relieve the pressure on this area "Keep the area clean and dry "Call your primary doctor if you see any of the above symptoms "DO NOT massage the area "DO NOT use a donut shaped or ring shaped pillow- these actually interfere with the blood flow and cause complications PREVENTION: "Check for pressure ulcers everyday "Change position at least every two hours to relieve pressure "Use items that help relieve pressure- pillows, sheepskin, foam padding, and powders. "Keep skin clean and dry "Eat healthy well balanced meals "Exercise daily IF YOU SEE ANY OF THESE SYMPTOMS WHILE IN THE HOSPITAL - TELL YOUR NURSE IMMEDIATELY. IF YOU SEE ANY OF THESE SYMPTOMS WHILE AT HOME OR HAVE ANY QUESTIONS OR CONCERNS ABOUT PRESSURE ULCERS - CALL YOUR PRIMARY DOCTOR IMMEDIATELY. Addendum: 05/08/22 at 1517 by Sarah Galicia LVN Amended: Links added.
--- NOTE | 2022-05-08 17:45 | NUR ---
PAGER ID: [phone] MESSAGE: Nikhil Molina in [id number] - lung scan showed "intermediate to high probability for pulmonary embolism". Yazmin [phone]
[2022-05-08] MEDS ORDERED: morphine 2 MG/ML inj. syringe IV PRN (18:00)
--- NOTE | 2022-05-08 18:23 | NUR ---
Problems reprioritized. Patient report given, questions answered & plan of care reviewed with Moon.
--- NOTE | 2022-05-08 19:13 | NUR ---
Patient in room ORTHO 4023. I have received report from ADELIA Arce and had the opportunity to ask questions and assume patient care.
[2022-05-08] MEDS: apixaban 2.5mg tablet PO SCH (21:38)
[2022-05-09 06:00] VITALS: BP 99/55
--- NOTE | 2022-05-09 06:18 | NUR ---
Problems reprioritized. Patient report given, questions answered & plan of care reviewed with ADELIA Edwards.
[2022-05-09 06:24] LABS: BASOPHILS % (AUTO) 0.1 % (0-1); EOSINOPHILS % (AUTO) 0 % (0-6); HEMATOCRIT 27.8 % (42.0-52.0); HEMOGLOBIN 9.4 g/dl (14.0-17.9); LYMPHOCYTES # (AUTO) 0.1 X10'3 (1.1-4.8); LYMPHOCYTES % (AUTO) 1.7 % (21-51); MEAN CORPUSCULAR HEMOGLOBIN 31.1 PG (27.0-31.0); MEAN CORPUSCULAR HGB CONC 33.7 g/dL (33.0-36.5); MEAN CORPUSCULAR VOLUME 92.2 FL (78-98); MEAN PLATELET VOLUME 8.8 FL (7.4-10.4); MONOCYTES # (AUTO) 0.1 X10'3 (0-0.9); MONOCYTES % (AUTO) 1.4 % (2-12); NEUTROPHILS # (AUTO) 8.2 X10'3 (1.8-7.7); NEUTROPHILS % (AUTO) 96.8 % (42-75); RED BLOOD COUNT 3.02 X10'6 (4.70-6.10); RED CELL DISTRIBUTION WIDTH 15.8 % (11.5-14.5); WHITE BLOOD COUNT 8.5 X10'3 (4.5-11.0)
[2022-05-09 06:33] LABS: ALANINE AMINOTRANSFERASE 26 U/L (12-78); ALBUMIN 1.6 G/DL (3.4-5.0); ALBUMIN/GLOBULIN RATIO 0.9 (1.1-1.5); ALKALINE PHOSPHATASE 47 IU/L (46-116); ANION GAP 9 (8-16); ASPARTATE AMINO TRANSFERASE 23 U/L (10-37); BILIRUBIN,TOTAL 0.8 MG/DL (0.1-1.0); BLOOD UREA NITROGEN 62 MG/DL (7-18); BUN/CREATININE RATIO 43.7 (10.0-20.0); CHLORIDE 106 MMOL/L (99-107); CREATININE 1.42 MG/DL (0.60-1.10); GLUCOSE 85 MG/DL (70-104); PLATELET COUNT 35 X10'3 (140-440); SODIUM 132 MMOL/L (135-145); TOTAL CARBON DIOXIDE 17.4 MMOL/L (24-32); TOTAL PROTEIN 3.4 G/DL (6.4-8.2); eGFR 51 ML/MIN
[2022-05-09 06:38] LABS: CALCIUM 5.8 MG/DL (8.5-10.1); POTASSIUM 2.9 MMOL/L (3.5-5.1)
[2022-05-09] MEDS: levoTHYROXINE 100mcg tablet PO SCH (06:51)
[2022-05-09] MEDS: normal saline 1000ml 1,000 ML IV SCH ×2 (06:52→21:17)
[2022-05-09] MEDS ORDERED: salt irrigation nasal spray 45 ML SPRAY NS PRN (06:55)
[2022-05-09] MEDS: K and/or MAG REPLACEMENT MC SCH ×2 (07:31→20:00)
[2022-05-09] MEDS: sucralfate 1 gm tablet PO SCH ×3 (07:31→21:19)
[2022-05-09] MEDS: CefTRIAXone/D5W-Rocephin 1gm 50 ML IV SCH (07:31)
[2022-05-09] MEDS: citalopram 20mg tablet PO SCH (07:31)
[2022-05-09] MEDS: predniSONE 20 mg tablet PO SCH (07:32)
[2022-05-09] MEDS: pantoprazole 40mg Tablet.DR PO SCH ×2 (07:32→21:19)
[2022-05-09] MEDS: potassium Cl 20 mEq SR tablet PO PRN ×3 (07:33→21:19)
[2022-05-09] MEDS: RIOCIGUAT 2.5 MG PO SCH ×3 (07:35→21:19)
[2022-05-09] MEDS: apixaban 2.5mg tablet PO SCH ×2 (08:00→21:12)
[2022-05-09] MEDS: calcium carbonate 500mg tablet PO SCH ×3 (08:30→18:54)
[2022-05-09 15:00] VITALS: BP 93/54
[2022-05-09 18:00] VITALS: BP 99/55
--- NOTE | 2022-05-09 18:20 | NUR ---
Patient in room ORTH[facility] 4023. I have received report from ADELIA Lomax and had the opportunity to ask questions and assume patient care.
[2022-05-09] MEDS: HYDROcodone/acetaminophen 5mg/325mg tablet PO PRN (18:54)
--- NOTE | 2022-05-09 18:59 | NUR ---
Problems reprioritized. Patient report given, questions answered & plan of care reviewed with ADELIA Mustafa.
[2022-05-09 22:00] VITALS: BP 102/55
[2022-05-10] MEDS: HYDROcodone/acetaminophen 5mg/325mg tablet PO PRN (01:06)
[2022-05-10] MEDS: normal saline 1000ml 1,000 ML IV SCH (02:30)
[2022-05-10 06:00] VITALS: BP 83/53
--- NOTE | 2022-05-10 06:07 | NUR ---
Problems reprioritized. Patient report given, questions answered & plan of care reviewed with ADELIA Ac.
[2022-05-10 06:30] LABS: BASOPHILS % (AUTO) 0.1 % (0-1); EOSINOPHILS % (AUTO) 0.1 % (0-6); HEMOGLOBIN 9.2 g/dl (14.0-17.9); LYMPHOCYTES # (AUTO) 0.1 X10'3 (1.1-4.8); LYMPHOCYTES % (AUTO) 1.4 % (21-51); MEAN CORPUSCULAR HEMOGLOBIN 31.3 PG (27.0-31.0); MEAN PLATELET VOLUME 8.5 FL (7.4-10.4); MONOCYTES % (AUTO) 0.3 % (2-12); NEUTROPHILS % (AUTO) 98.1 % (42-75); RED BLOOD COUNT 2.94 X10'6 (4.70-6.10); RED CELL DISTRIBUTION WIDTH 15.6 % (11.5-14.5); WHITE BLOOD COUNT 9.2 X10'3 (4.5-11.0)
[2022-05-10 06:32] LABS: ALANINE AMINOTRANSFERASE 45 U/L (12-78); ALBUMIN 1.6 G/DL (3.4-5.0); ALBUMIN/GLOBULIN RATIO 0.8 (1.1-1.5); ALKALINE PHOSPHATASE 59 IU/L (46-116); ANION GAP 10 (8-16); ASPARTATE AMINO TRANSFERASE 38 U/L (10-37); BILIRUBIN,TOTAL 0.9 MG/DL (0.1-1.0); BLOOD UREA NITROGEN 46 MG/DL (7-18); BUN/CREATININE RATIO 46.5 (10.0-20.0); CALCIUM 6.1 MG/DL (8.5-10.1); CHLORIDE 107 MMOL/L (99-107); CREATININE 0.99 MG/DL (0.60-1.10); GLUCOSE 84 MG/DL (70-104); MAGNESIUM 1.9 MG/DL (1.5-2.4); POTASSIUM 3.8 MMOL/L (3.5-5.1); SODIUM 132 MMOL/L (135-145); TOTAL CARBON DIOXIDE 15.5 MMOL/L (24-32); TOTAL PROTEIN 3.6 G/DL (6.4-8.2); eGFR 77 ML/MIN
[2022-05-10 06:56] LABS: PLATELET COUNT 27 X10'3 (140-440)
--- NOTE | 2022-05-10 07:00 | NUR ---
sent a page to hospitalist letting them know of pt low plt level, no new orders at this time
[2022-05-10] MEDS: apixaban 2.5mg tablet PO SCH (08:00)
[2022-05-10] MEDS: K and/or MAG REPLACEMENT MC SCH (08:00)
[2022-05-10] MEDS: CefTRIAXone/D5W-Rocephin 1gm 50 ML IV SCH (08:21)
[2022-05-10] MEDS: levoTHYROXINE 100mcg tablet PO SCH (08:21)
[2022-05-10] MEDS: sucralfate 1 gm tablet PO SCH ×2 (08:21→12:42)
[2022-05-10] MEDS: pantoprazole 40mg Tablet.DR PO SCH (08:23)
[2022-05-10] MEDS: calcium carbonate 500mg tablet PO SCH ×2 (08:23→12:42)
[2022-05-10] MEDS: predniSONE 20 mg tablet PO SCH (08:23)
[2022-05-10] MEDS: citalopram 20mg tablet PO SCH (08:24)
[2022-05-10] MEDS: RIOCIGUAT 2.5 MG PO SCH ×2 (08:25→12:42)
[2022-05-10] MEDS ORDERED: albumin (human) 25% 100 ML IV solution IV ONE (09:25)
[2022-05-10 10:00] VITALS: BP 93/57
[2022-05-10 14:30] VITALS: BP 126/67
== END 2022-05-10 16:20 | disposition left against medical advice (07) | DRG 683 ==
LOC: ER 14:40 → ED HOLD 20:04 → ORTHO 4S 22:30
PROVIDERS: ADMIT Family Medicine; ATTEND Internal Medicine
PROC: 0W9G3ZZ Drainage of Peritoneal Cavity, Percutaneous Approach (ICD-10-PCS; principal; 2022-05-08)
PROC: CB121ZZ Planar Nuclear Medicine Imaging of Lungs and Bronchi using Technetium 99m (Tc-99m) (ICD-10-PCS; 2022-05-08)
DX: N17.9 Acute kidney failure, unspecified (principal); E87.1 Hypo-osmolality and hyponatremia; R18.8 Other ascites; I13.0 Hypertensive heart and chronic kidney disease with heart failure and stage 1 through stage 4 chronic kidney disease, or unspecified chronic kidney disease; I50.32 Chronic diastolic (congestive) heart failure; J98.11 Atelectasis; K76.6 Portal hypertension; K80.10 Calculus of gallbladder with chronic cholecystitis without obstruction; Z53.29 Procedure and treatment not carried out because of patient's decision for other reasons; D69.59 Other secondary thrombocytopenia; R04.0 Epistaxis; E05.00 Thyrotoxicosis with diffuse goiter without thyrotoxic crisis or storm; F32.A Depression, unspecified; I95.9 Hypotension, unspecified; D86.9 Sarcoidosis, unspecified; E88.09 Other disorders of plasma-protein metabolism, not elsewhere classified; G89.4 Chronic pain syndrome; I27.20 Pulmonary hypertension, unspecified; J44.9 Chronic obstructive pulmonary disease, unspecified; K21.9 Gastro-esophageal reflux disease without esophagitis; N18.9 Chronic kidney disease, unspecified; Z79.01 Long term (current) use of anticoagulants; Z79.52 Long term (current) use of systemic steroids; Z86.711 Personal history of pulmonary embolism; Z95.828 Presence of other vascular implants and grafts; Z79.899 Other long term (current) drug therapy
CPT/HCPCS: 36415; 49083; 70450; 71045; 74176; 78582; 80053; 80061; 80305; 81003; 82140; 82550; 83036; 83605; 83690; 83735; 83880; 84100; 84145; 84443; 84484; 85025; 85379; 85610; 85730; 87040; 87081; 93005; 93306; 94760; 99285; A4615; A4620; A9539; A9540; G0378; J0696; J2270; J2405; J7030; J7512; P9045; P9047

== ENCOUNTER 2022-05-22 08:24 | Day surgery (SDC) | payer BC ==
[~2022-05-22] VITALS: Ht 177.8 cm; Wt 76.8 kg
[2022-05-22] MEDS ORDERED: albumin 25% 100mL bottle x 1 IV PRN (09:00)
[2022-05-22] MEDS ORDERED: LIDOcaine 1% 30ml preserv. free vial SQ STA (09:17)
[2022-05-22 09:54] VITALS: BP 97/57
[2022-05-22 10:09] VITALS: BP 97/53
[2022-05-22] MEDS ORDERED: oxyCODONE SR 10mg (sust. release) tab PO ONE (10:10)
[2022-05-22 10:24] VITALS: BP 88/48
[2022-05-22 10:49] VITALS: BP 94/48
== END 2022-05-22 11:30 | disposition home or self-care (01) ==
LOC: SSTAY O 08:24
PROVIDERS: ATTEND Radiology Vascular & Interventional Radiology
DX: R18.8 Other ascites (principal); E03.9 Hypothyroidism, unspecified; I27.20 Pulmonary hypertension, unspecified; I11.0 Hypertensive heart disease with heart failure; I50.32 Chronic diastolic (congestive) heart failure; K21.9 Gastro-esophageal reflux disease without esophagitis; Z79.899 Other long term (current) drug therapy; Z98.890 Other specified postprocedural states; Z86.711 Personal history of pulmonary embolism
CPT/HCPCS: 49083; C1729; P9047; A6258; A6449

== ENCOUNTER 2022-06-08 07:32 | Day surgery (SDC) | payer BC ==
[~2022-06-08] VITALS: Ht 177.8 cm; Wt 73.6 kg
[2022-06-08] MEDS ORDERED: albumin 25% 100mL bottle x 1 IV PRN (07:50)
[2022-06-08] MEDS ORDERED: LIDOcaine 1% 30ml preserv. free vial SQ STA (07:59)
[2022-06-08] MEDS ORDERED: OXYC10TA47 PO (08:16)
[2022-06-08] MEDS ORDERED: TORS20TA3 PO (08:16)
[2022-06-08] MEDS ORDERED: TRAM50TA2 PO (08:16)
[2022-06-08] MEDS ORDERED: POTA-206 PO (08:16)
[2022-06-08] MEDS ORDERED: DOCU-148 PO (08:17)
[2022-06-08 08:45] VITALS: BP 100/53
== END 2022-06-08 08:50 | disposition home or self-care (01) ==
LOC: SSTAY O 07:32
PROVIDERS: ATTEND Radiology Vascular & Interventional Radiology
DX: R18.8 Other ascites (principal); Z53.8 Procedure and treatment not carried out for other reasons; R14.0 Abdominal distension (gaseous); E03.9 Hypothyroidism, unspecified; I27.20 Pulmonary hypertension, unspecified; E87.1 Hypo-osmolality and hyponatremia; D86.9 Sarcoidosis, unspecified; D69.6 Thrombocytopenia, unspecified; K76.6 Portal hypertension; E05.00 Thyrotoxicosis with diffuse goiter without thyrotoxic crisis or storm; K21.9 Gastro-esophageal reflux disease without esophagitis; I11.0 Hypertensive heart disease with heart failure; I50.32 Chronic diastolic (congestive) heart failure; Z86.711 Personal history of pulmonary embolism; Z79.01 Long term (current) use of anticoagulants; Z98.890 Other specified postprocedural states; Z79.899 Other long term (current) drug therapy
CPT/HCPCS: 76705; A4615; A6258; A6449